=== PATIENT | female | born 1945 | race African-American/Black ===

== ENCOUNTER 2018-05-08 16:22 | Emergency (ER) | payer MEDICARE, OTHER ==
[~2018-05-08] VITALS: Ht 165.1 cm; Wt 106.1 kg
[~2018-05-08 16:22] MED LIST: COLACE100 MG ORAL; COLCRYS0.6 M1 PO; DIFLUCAN150 MG PO; HYDROCODON-ACE1 EA15 ORAL; INDOCIN25 MG ORAL; INDOCIN75 MG ORAL; INDOMETHACIN75 MG ORAL; KETOCONAZOLE15 GM TOP; MAG-OXIDE400 M1 PO; METOPROLOL TART50 M1 ORAL; NORCO 5-325 TA1 EACH ORAL; NYSTATIN1 EAC1 PO; PREDNISONE20 MG ORAL; SPIRONOLACTONE1 EACH ORAL; SPIRONOLACTONE100 MG ORAL; TRAMADOL HCL50 MG ORAL; VALIUM5 MG ORAL; WARFARIN SODIUM4 MG ORAL
[2018-05-08] MEDS ORDERED: Acetaminophen 500mg (ES) tab ORAL ONE (17:00)
--- NOTE | 2018-05-08 17:04 | Emergency Room Report ---
History of Present Illness General Chief Complaint: Pain Present Illness HPI 72-year-old female patient presents ER complaining of left knee pain. Reports mild swelling and pain at the lateral aspect of her left knee. Reports history of gout, states she has not taken medication today or yesterday for relief of Symptoms. Reports That She Takes Warfarin, Denies History of Pulmonary Embolism or DVT. Denies Shortness of Breath or Chest Pain. Denies Abdominal Pain. reports history of left knee surgery 15 years ago. Denies recent injury or trauma. Denies other acute symptoms. Reports took ibuprofen for pain relief earlier today. Reports able to ambulate, walks with assistance of walker. reports right knee with symptomatic previously but symptoms have since resolved and is now beginning to experience symptoms and left knee. Allergies: Coded Allergies: TRAMADOL (Verified Allergy, Unknown, 12/25/15) Patient History Past Medical History: see triage record Reviewed Nursing Documentation: PMH: Agreed; PSxH: Agreed Nursing Documentation-PMH Hx Cardiac Problems: Yes - Enlarged heart; Gout; taking warfarin Hx Hypertension: Yes - LEFT KNEE REPLACEMENT Hx Pacemaker: No Hx Asthma: Yes - Bronchitis Hx Diabetes: No Hx Cancer: No Hx Gastrointestinal Problems: No Hx Dialysis: No Hx Neurological Problems: No Hx Cerebrovascular Accident: No Hx Seizures: No Review of Systems All Other Systems: negative except mentioned in HPI Physical Exam Vital Signs Date Time Temp Pulse Resp B/P (MAP) Pulse Ox O2 Delivery O2 Flow Rate FiO2 05/08/18 16:24 98.1 81 16 116/70 92 Room Air 98.1 Sp02 EP Interpretation: reviewed, normal General Appearance: well appearing, no apparent distress, alert, GCS 15, non- toxic Head: normocephalic, atraumatic Eyes: bilateral eye normal inspection, bilateral eye PERRL ENT: hearing grossly normal, normal pharynx, no angioedema, normal voice, uvula midline, moist mucus membranes Neck: full range of motion Respiratory: lungs clear, normal breath sounds, no rhonchi, no respiratory distress, no accessory muscle use, no wheezing, speaking full sentences Cardiovascular #1: regular rate, rhythm, no edema Cardiovascular #2: 2+ dorsalis pedis (R), 2+ dorsalis pedis (L) Musculoskeletal: back normal, digits/nails normal, gait/station normal, normal range of motion, no calf tenderness, Mechelle's Sign negative, other - No laxity with varus or valgus stress, tender - Lateral aspect of left knee Neurologic: alert, oriented x3, responsive, motor strength/tone normal, sensory intact Psychiatric: mood/affect normal Skin: no rash Medical Decision Making PA Attestation Dr. Marie is my supervising Physician whom patient management has been discussed with. Diagnostic Impression: Primary Impression: Knee pain, left ER Course Pt. presents to the ED c/o left knee pain. Ddx considered but are not limited to fracture, sprain, strain, contusion, dislocation, gout, DVT. No erythema, no warmth to touch, no fever, nontoxic appearing, low suspicion for septic joint. no unilateral leg swelling, negative Homans sign, low suspicion for DVT, however due to history of taking warfarin Will order ultrasound to rule out underlying pathology. Vital signs: are WNL, pt. is afebrile Ordered X-ray and pain medication. ER COURSE Provided with pain medication. An X-ray of the left knee negative for acute disease with the official reading. Doppler US of left lower extremity ordered shows no DVT. Symptoms likely related to patient has history of arthritis. Informed patient that because she was favoring her left knee last week when right knee was in pain may have cause symptoms to arise and left knee this week. Instructed on RICE method, continue take Tylenol. Follow-up with primary care provider for further diagnosis and treatment. Continue to take gout Medication as previously prescribed. continue to follow gout healthy diet. JOSE Wrap was applied to the left knee was checked afterwards by me showing good alignment and support with distal neurovascular functioning intact. patient does not require crutches as walker that she uses to walk. Patient able ambulate independently without difficulty while in ER. Patient instructed on RICE method: rest, ice, compression, elevation. Patient instructed to be WBAT Followup with primary care provider. Discuss referral to ortho/pain management/ PT as needed. Discuss further imaging with MRI/CT as needed. DISCHARGE: -Rx provided for Tylenol for pain symptoms At this time pt. is stable for d/c to home. Patient is resting comfortably, in no acute distress, nontoxic appearing, talking without difficulty. Will provide printed patient care instructions, and any necessary prescriptions. Patient instructed to follow with primary care provider in 3 - 5 days and to request further follow-up as needed. Care plan and follow up instructions have been discussed with the patient prior to discharge. Take medications as directed. Patient questions asked and answered. Patient reports understanding and agreement to treatment plan. ER precautions given, patient instructed to return to ER immediately for any new or worsening of symptoms. - Please note that this Emergency Department Report was dictated using [employer] software, occasionally this can lead to erroneous entry secondary to interpretation by the dictation equipment. Other X-Ray Diagnostic Results Other X-Ray Diagnostic Results : X-Ray ordered: left knee # of Views/Limited Vs Complete: 3 View Indication: Pain EP Interpretation: Yes PA Xray: Interpretation reviewed, by supervising MD, and agrees with findings. Interpretation: no dislocation, no fractures, other - Prepatellar swelling, no acute traumna, knee arthroplasty prosthesis Impression: No acute disease CYRUS ScribKeshav Kerns PA-C CT/MRI/US Diagnostic Results CT/MRI/US Diagnostic Results : Imaging Test Ordered: Doppler US left lower extremity Impression no DVT Last Vital Signs Date Time Temp Pulse Resp B/P (MAP) Pulse Ox O2 Delivery O2 Flow Rate FiO2 05/08/18 16:24 98.1 81 16 116/70 92 Room Air 98.1 Disposition: HOME, SELF-CARE Condition: Stable Scripts Acetaminophen* (TYLENOL EXTRA STRENGTH*) 500 Mg Tablet 500 MG ORAL Q8H PRN for Prn Headache/Temp > 101, #30 TAB 0 Refills Prov: Cisco Kerns 05/08/18 Patient Instructions: Knee Pain, [id number] Additional Instructions: Patient instructed to follow up with primary care provider and discuss further referral to orthopedics. Patient instructed on RICE method: rest, ice, compression, elevation. Patient instructed to WBAT. Take medications as directed. Patient questions asked and answered. ER precautions given, patient instructed to return to ER immediately for any new or worsening of symptoms. Cisco Kerns May 08, 2018 17:04
--- NOTE | 2018-05-08 18:24 | Diagnostic Imaging Report ---
Indication: Knee pain Technique: 3 views of the left knee Comparison: None Findings: There is a knee arthroplasty prosthesis, good anatomic alignment. No worrisome periprosthetic lucency demonstrated. No acute fractures. No dislocations. There is questionably a small soft tissue defect anterior to the patella. No suprapatellar effusion Impression: Possible prepatellar soft tissue injury No acute bony trauma Postsurgical changes, as described
[2018-05-08 18:58] VITALS: BP 116/70
[2018-05-08] MEDS ORDERED: TYLENOL EXTRA500 MG ORAL (20:06)
[2018-05-08 20:14] VITALS: BP 119/72
== END 2018-05-08 20:14 | disposition home or self-care (01) ==
LOC: EMR 17:00
DX: M25.562 Pain in left knee (principal); I10 Essential (primary) hypertension; Z96.652 Presence of left artificial knee joint
CPT/HCPCS: 93971; 99284